=== PATIENT | male | born 1980 | race Hispanic/Latino ===

== ENCOUNTER 2017-11-06 03:54 | Emergency (ER) | payer SELFPAY ==
[2017-11-06] MEDS ORDERED: LIDOCAINE VISCOUS 2% SOLN 15 ML UDC ONE (04:06)
--- NOTE | 2017-11-06 04:23 | EDPHYS ---
Physician Documentation [facility] Name: José Miguel Bauman Age: 37 yrs Sex: Male : 1980 Arrival Date: 11/06/2017 Time: 03:58 Bed 5 Private MD: ED Physician Brandon Aguilar HPI: 11/06 04:12 This 37 yrs old Male presents to ER via Unassigned with complaints of Bug in Ear. ps1 04:12 The patient presents with a foreign body sensation, presumably from an insect. patient ps1 was awakened from insect in ear. Currently feels it moving. BIBEMS. Pain moderate with insect movement. . Historical: - Allergies: 04:27 No Known Allergies; aa1 - Home Meds: 04:27 None [Active]; aa1 - PMHx: 04:27 None; aa1 - PSHx: 04:27 None; aa1 - Immunization history:: Last tetanus immunization: < 10 years ago. - Social history:: Smoking status: Patient uses tobacco products, smokes one-half pack cigarettes per day. - Ebola Screening: : No symptoms or risks identified at this time. ROS: 04:12 Constitutional: Negative for fever, chills, and weight loss, Eyes: Negative for injury, ps1 pain, redness, and discharge, Cardiovascular: Negative for chest pain, palpitations, and edema, Respiratory: Negative for shortness of breath, cough, wheezing, and pleuritic chest pain, Abdomen/GI: Negative for abdominal pain, nausea, vomiting, diarrhea, and constipation. 04:12 ENT: Positive for foreign body sensation. Exam: 04:12 Constitutional: This is a well developed, well nourished patient who is awake, alert, ps1 and in no acute distress. Head/Face: Normocephalic, atraumatic. Chest/axilla: Normal chest wall appearance and motion. Nontender with no deformity. No lesions are appreciated. Cardiovascular: Regular rate and rhythm. No gallops, murmurs, or rubs. Normal PMI, no JVD. No pulse deficits. Respiratory: Lungs have equal breath sounds bilaterally, clear to auscultation and percussion. No rales, rhonchi or wheezes noted. No increased work of breathing, no retractions or nasal flaring. Abdomen/GI: Soft, non-tender, with normal bowel sounds. No distension or tympany. No guarding or rebound. No evidence of tenderness throughout. 04:12 ENT: External ear(s): are unremarkable, Ear canal(s): foreign body, an insect, bonilla, in the right external ear canal. Vital Signs: 03:58 BP 140 / 102; Pulse 75; Resp 16; Temp 97.8; Pulse Ox 98% on R/A; Weight 93.89 kg; aa1 Height 5 ft. 9 in. (175.26 cm); Pain 0/10; 03:58 Body Mass Index 30.57 (93.89 kg, 175.26 cm) aa1 Procedures: 04:12 Foreign Body Removal: an insect, from the right ear canal, by using alligator clamps, ps1 lidocaine lavage, The patient tolerated the removal well. MDM: 04:12 Data reviewed: vital signs, nurses notes, and as a result, I will discharge patient. ps1 04:22 Patient medically screened. ps1 Administered Medications: 04:05 Drug: Viscous Lidocaine Liquid (4 %) 1 application Route: Mucous Membrane; aa1 Disposition: 11/06/17 04:22 Discharged to Home. Impression: Foreign body in right ear. - Condition is Stable. - Discharge Instructions: Ear Foreign Body. - Medication Reconciliation Form, Thank You Letter, Antibiotic Education, Prescription Opioid Use form. - Follow up: Emergency Department; When: As needed; Reason: Worsening of condition. Follow up: Private Physician; When: As needed; Reason: Fever > 102 F. - Problem is new. - Symptoms are resolved. Signatures: Margaret Thompson RN RN aa1 Agustina Carrillo RN RN bb Brandon Aguilar MD MD ps1 Corrections: (The following items were deleted from the chart) 04:33 04:22 11/06/2017 04:22 Discharged to Home. Impression: Foreign body in right ear. aa1 Condition is Stable. Forms are Medication Reconciliation Form, Thank You Letter, Antibiotic Education, Prescription Opioid Use. Follow up: Emergency Department; When: As needed; Reason: Worsening of condition. Follow up: Private Physician; When: As needed; Reason: Fever > 102 F. Problem is new. Symptoms are resolved. ps1
--- NOTE | 2017-11-06 04:23 | ER ---
Nurse's Notes [facility] Name: José Miguel Bauman Age: 37 yrs Sex: Male : 1980 Arrival Date: 11/06/2017 Time: 03:58 Bed 5 Private MD: Diagnosis: Foreign body in right ear Presentation: 11/06 03:58 Presenting complaint: Patient states: he has a bug stuck in his R ear canal. Transition aa1 of care: patient was not received from another setting of care. Onset of symptoms was November 06, 2017. Risk Assessment: Do you want to hurt yourself or someone else? Patient reports no desire to harm self or others. Initial Sepsis Screen: Does the patient meet any 2 criteria? No. Patient's initial sepsis screen is negative. Does the patient have a suspected source of infection? No. Patient's initial sepsis screen is negative. Care prior to arrival: None. 03:58 Method Of Arrival: EMS: [facility] aa1 03:58 Acuity: KALYANI 4 aa1 Historical: - Allergies: 04:27 No Known Allergies; aa1 - Home Meds: 04:27 None [Active]; aa1 - PMHx: 04:27 None; aa1 - PSHx: 04:27 None; aa1 - Immunization history:: Last tetanus immunization: < 10 years ago. - Social history:: Smoking status: Patient uses tobacco products, smokes one-half pack cigarettes per day. - Ebola Screening: : No symptoms or risks identified at this time. Screenin:00 Abuse screen: Denies threats or abuse. Denies injuries from another. Nutritional aa1 screening: No deficits noted. Tuberculosis screening: No symptoms or risk factors identified. Fall Risk None identified. Assessment: 04:00 General: Appears in no apparent distress. comfortable, Behavior is calm, cooperative, aa1 appropriate for age. Pain: Denies pain. Neuro: Level of Consciousness is awake, alert, obeys commands, Oriented to person, place, time, situation, Gait is steady. Respiratory: Airway is patent Respiratory effort is even, unlabored, Respiratory pattern is regular, symmetrical. GI: No signs and/or symptoms were reported involving the gastrointestinal system. : No signs and/or symptoms were reported regarding the genitourinary system. EENT: Ear canal w/ foreign body noted from right ear. Derm: Skin is intact, is healthy with good turgor, Skin is pink, warm \T\ dry. Musculoskeletal: Circulation, motion, and sensation intact. Capillary refill < 3 seconds. Vital Signs: 03:58 BP 140 / 102; Pulse 75; Resp 16; Temp 97.8; Pulse Ox 98% on R/A; Weight 93.89 kg; aa1 Height 5 ft. 9 in. (175.26 cm); Pain 0/10; 03:58 Body Mass Index 30.57 (93.89 kg, 175.26 cm) aa1 ED Course: 03:58 Patient arrived in ED. bb 03:58 Arm band placed on right wrist. Patient placed in an exam room, on a stretcher. aa1 04:00 Patient has correct armband on for positive identification. Bed in low position. Call aa1 light in reach. Pulse ox on. NIBP on. 04:10 Assist provider with foreign body removal of an insect from right ear canal. using aa1 alligator clamps, Set up for procedure. Performed by Brandon Aguilar MD Patient tolerated well. Patient did not have IV access during this emergency room visit. 04:12 Brandon Aguilar MD is Attending Physician. ps1 04:12 Margaret Thompson RN is Primary Nurse. aa1 04:18 Triage completed. aa1 Administered Medications: 04:05 Drug: Viscous Lidocaine Liquid (4 %) 1 application Route: Mucous Membrane; aa1 Outcome: 04:22 Discharge ordered by . ps1 04:32 Discharged to home ambulatory, with family. aa1 04:32 Condition: good 04:32 Discharge instructions given to patient, Instructed on discharge instructions, follow up and referral plans. Demonstrated understanding of instructions, follow-up care. 04:33 Patient left the ED. aa1 Signatures: Margaret Thompson, RN RN aa1 Agustina Carrillo RN RN bb Brandon Aguilar MD MD ps1
== END 2017-11-06 04:33 | disposition home or self-care (01) ==
LOC: ER 03:54
PROC: 09C3XZZ Extirpation of Matter from Right External Auditory Canal, External Approach (ICD-10-PCS; principal; 2017-11-06)
DX: T16.1XXA Foreign body in right ear, initial encounter (principal); F17.210 Nicotine dependence, cigarettes, uncomplicated
CPT/HCPCS: 99284

== ENCOUNTER 2018-03-10 04:06 | Emergency (ER) | payer SELFPAY ==
[2018-03-10] MEDS ORDERED: HYDROMORPHONE HCL 1 MG/ML INJ ONE ×2 (04:56→07:28)
[2018-03-10] MEDS ORDERED: ONDANSETRON 4 MG/2 ML VIAL ONE (04:56)
[2018-03-10 05:14] LABS: Absolute Lymphocytes (CBC) 2.9 K/uL (0.7-4.9); Absolute Monocytes 0.8 K/uL (0.1-1.3); Basophils % 0.5 % (0-1.3); Eosinophils % 0.5 % (0-4.4); Hematocrit 47.4 % (39.6-49.0); Lymphocytes % 26.8 % (15.3-44.8); MCH 29.3 pg (27.0-35.0); MCV 84.6 fL (80-100); MPV 7.6 fL (7.6-11.3); Monocytes % 7.5 % (3.3-12.3); RBC Red Blood Cell Count 5.61 M/uL (4.33-5.43)
[2018-03-10] MEDS ORDERED: PANTOPRAZOLE 40 MG INJ ONE (05:17)
[2018-03-10] MEDS ORDERED: METRONIDAZOLE 500mg IVPB 500 MG/100 ML BAG IV ONE (05:18)
[2018-03-10] MEDS ORDERED: Levofloxacin 750mg IV 750 MG/150 ML BAG IV ONE (05:18)
[2018-03-10 05:31] LABS: Albumin 4.4 g/dL (3.4-5.0); Bilirubin Direct 0.2 mg/dL (0-0.2); Bilirubin Total 0.7 mg/dL (0.2-1.0); Potassium 3.7 mmol/L (3.5-5.1); Protein, Total 8.9 g/dL (6.4-8.2)
[2018-03-10] MEDS ORDERED: NA CHLORIDE 0.9% 2,000 ML ONE (06:13)
--- OUTSIDE RECORDS SUMMARY | 2018-03-10 06:52 | XMS REPORT ---
:1980 [facility] Address [address] [place] [address] [address]. [address] [place] [address] Care Team Providers Name Role Phone Unavailable Unavailable Unavailable Problems This patient has no known problems. Allergies, Adverse Reactions, Alerts This patient has no known allergies or adverse reactions. Medications This patient has no known medications. Encounters Start End Encounter Admission Attending Care Care Encounter Date/Time Date/Time Type Type Clinicians Facility Department ID 2016-09-24 2016-11-24 Outpatient [facility] [id number] 00:00:00 00:00:00
--- NOTE | 2018-03-10 07:34 | ER ---
Nurse's Notes [facility] Name: José Miguel Bauman Age: 37 yrs Sex: Male : 1980 Arrival Date: 03/10/2018 Time: 04:12 Bed 16 Private MD: Diagnosis: Abdominal tenderness;Strain of muscle, fascia and tendon of abdomen;Strain of muscle, fascia and tendon of abdomen, lower back and pelvis;Diverticulosis of intestine, part unspecified, without perforation or abscess without bleeding-scattered sigmoid, mild, no diverticulitis Presentation: 03/10 04:13 Presenting complaint: Patient states: toned out for report of pt having severe groin bb pain. Transition of care: patient was not received from another setting of care. Onset of symptoms was March 09, 2018. Risk Assessment: Do you want to hurt yourself or someone else? Patient reports no desire to harm self or others. Initial Sepsis Screen: Does the patient meet any 2 criteria? No. Patient's initial sepsis screen is negative. Does the patient have a suspected source of infection? No. Patient's initial sepsis screen is negative. Care prior to arrival: None. 04:13 Method Of Arrival: EMS: [facility] bb 04:13 Acuity: KALYANI 3 bb Historical: - Allergies: 08:48 Levaquin; bp - Home Meds: 04:15 None [Active]; bb - PMHx: 04:15 None; bb - PSHx: 04:15 None; bb - Immunization history:: Adult Immunizations unknown. - Social history:: Smoking status: Patient uses tobacco products, denies chronic smoking, but will smoke occasionally, Patient uses alcohol, occasionally. Patient/guardian denies using street drugs. - Ebola Screening: : No symptoms or risks identified at this time. - Family history:: not pertinent. Screenin:07 Abuse screen: Denies threats or abuse. Denies injuries from another. Nutritional bp screening: No deficits noted. Tuberculosis screening: No symptoms or risk factors identified. Fall Risk None identified. Assessment: 04:15 General: Appears in no apparent distress. comfortable, Behavior is calm, cooperative, cc3 appropriate for age. Pain: Complains of pain in left lower quadrant and posterior aspect of left lateral abdomen and right lower quadrant and right upper quadrant and posterior aspect of right lateral abdomen and anterior aspect of right lateral abdomen. Neuro: Level of Consciousness is awake, alert, obeys commands, Oriented to person, place, time, situation, Appropriate for age. Cardiovascular: Patient's skin is warm and dry. Respiratory: Airway is patent Respiratory effort is even, unlabored, Respiratory pattern is regular, symmetrical. GI: Abdomen is round obese. : No signs and/or symptoms were reported regarding the genitourinary system. EENT: No signs and/or symptoms were reported regarding the EENT system. Derm: No signs and/or symptoms reported regarding the dermatologic system. Musculoskeletal: Circulation, motion, and sensation intact. Range of motion: intact in all extremities. 05:18 Reassessment: Oral contrast is finished, CT scan department informed. cc3 06:45 Reassessment: Patient appears in no apparent distress at this time. Patient and/or cc3 family updated on plan of care and expected duration. Pain level reassessed. Patient is alert, oriented x 3, equal unlabored respirations, skin warm/dry/pink. Patient came back from CT scan department. 07:00 General: Appears in no apparent distress. comfortable, Behavior is calm, cooperative, bp appropriate for age, RECD REPORT FROM LUCRETIA PATRICIO. 37YO HM P/W GROIN PAIN. ALL CURRENT ORDERS COMPLETE. Pain: Complains of pain in left lower quadrant and right lower quadrant. Neuro: Level of Consciousness is awake, alert, obeys commands, Oriented to person, place, time, situation, Appropriate for age. Cardiovascular: No deficits noted. Respiratory: Airway is patent Respiratory effort is even, unlabored, Respiratory pattern is regular, symmetrical. GI: No signs and/or symptoms were reported involving the gastrointestinal system. : No signs and/or symptoms were reported regarding the genitourinary system. EENT: No deficits noted. Derm: No deficits noted. Musculoskeletal: Circulation, motion, and sensation intact. Range of motion: intact in all extremities. 07:40 Reassessment: D/C ON HOLD FOR IV ABX AND IVF COMPLETION. bp 08:28 Reassessment: PT ITCHING AFTER LEVAQUIN, PROVIDER INFORMED. bp 08:30 Reassessment: D/C ON HOLD FOR TREATMENT OF DRUG REACTION. bp 09:11 Reassessment: PT D/C HOME AMBULATORY WITH FAMILY, NO FURTHER S/S OF ADVERSE DRUG bp REACTION, DX WITH ABDOMINAL TENDERNESS AND DIVERTICULOSIS. Vital Signs: 04:15 BP 144 / 102; Pulse 109; Resp 18 S; Temp 98.3(O); Pulse Ox 96% on R/A; Weight 94.35 kg bb (R); Height 5 ft. 8 in. (172.72 cm) (R); Pain 10/10; 05:45 BP 119 / 75; Pulse 89; Resp 20 S; Pulse Ox 98% on R/A; cc3 06:30 BP 120 / 85; Pulse 86; Resp 19 S; Pulse Ox 98% on R/A; cc3 07:15 BP 123 / 74; Pulse 81; Resp 16; Pulse Ox 100% ; bp 08:39 BP 113 / 69; Pulse 82; Resp 17; Pulse Ox 97% on R/A; mh5 08:46 BP 123 / 90; Pulse 86; Resp 18; Pulse Ox 100% ; bp 04:15 Body Mass Index 31.63 (94.35 kg, 172.72 cm) bb ED Course: 04:12 Patient arrived in ED. bb 04:13 Steven Sterling MD is Attending Physician. simon 04:14 Triage completed. bb 04:15 Arm band placed on Patient placed in an exam room, on a stretcher, on pulse oximetry. bb 04:19 Lucretia Oakes is Primary Nurse. cc3 04:39 Inserted saline lock: 20 gauge in left antecubital area, using aseptic technique. Blood ea collected. 06:43 CT Abd/Pelvis - W/Contrast In Process Unspecified. EDMS 07:00 Report given to SINTIA Horan. cc3 07:03 Primary Nurse role handed off by Lucretia Oakes bp 07:03 Aung Plummer, RN is Primary Nurse. bp 07:07 Patient has correct armband on for positive identification. Bed in low position. Call bp light in reach. Side rails up X2. Adult w/ patient. 07:31 Brendan Son MD is Referral Physician. simon 09:13 No provider procedures requiring assistance completed. IV discontinued, intact, bp bleeding controlled, No redness/swelling at site. Pressure dressing applied. Administered Medications: 04:50 Drug: Dilaudid 1 mg Route: IVP; Site: left antecubital; cc3 05:30 Follow up: Response: No adverse reaction; Pain is decreased cc3 04:54 CANCELLED (Duplicate Order): Bactrim (160 mg-800 mg (DS) 1 tablet PO once simon 04:55 Drug: Zofran 4 mg Route: IVP; Site: left antecubital; cc3 05:30 Follow up: Response: No adverse reaction cc3 05:10 Drug: ProTONIX 40 mg Route: IVP; Site: left antecubital; cc3 05:30 Follow up: Response: No adverse reaction cc3 05:20 Drug: Flagyl 500 mg Volume: 100 ml; Route: IVPB; Rate: 200 ml/hr; Infused Over: 30 cc3 mins; Site: left antecubital; 05:50 Follow up: Response: No adverse reaction; IV Status: Completed infusion; IV Intake: cc3 100ml 06:00 Drug: levofloxacin 750 mg Volume: 150 ml; Route: IVPB; Infused Over: 90 mins; Site: cc3 left antecubital; 08:30 Follow up: IV Status: Completed infusion; IV Intake: 150ml bp 06:07 Drug: NS 0.9% 1000 ml Route: IV; Rate: 1 bolus; Site: left antecubital; ea 08:30 Follow up: IV Status: Completed infusion; IV Intake: 1000ml bp 06:08 Drug: NS 0.9% 1000 ml Route: IV; Rate: 1 bolus; Site: left antecubital; ea 08:00 Follow up: IV Status: Completed infusion; IV Intake: 1000ml bp 07:24 Drug: Dilaudid 1 mg Route: IVP; Site: left antecubital; bp 07:26 Follow up: Response: Pain is decreased bp 08:29 Drug: diphenhydrAMINE 25 mg Route: IVP; Site: left antecubital; bp 08:45 Follow up: Response: No change in condition bp 08:43 Drug: Pepcid 20 mg Route: PO; bp 09:10 Follow up: Response: Marked relief of symptoms bp 08:43 Drug: ZyrTEC - Cetirizine 10 mg Route: PO; bp 09:10 Follow up: Response: Marked relief of symptoms bp 08:44 Drug: predniSONE 60 mg Route: PO; bp 09:10 Follow up: Response: Marked relief of symptoms bp Intake: 05:50 IV: 100ml; Total: 100ml. cc3 08:00 IV: 1000ml; Total: 1100ml. bp 08:30 IV: 1000ml; Total: 2100ml. bp 08:30 IV: 150ml; Total: 2250ml. bp Outcome: 07:34 Discharge ordered by . simon 09:14 Discharged to home ambulatory, with family. bp 09:14 Condition: stable 09:14 Discharge instructions given to patient, family, Instructed on discharge instructions, follow up and referral plans. medication usage, Demonstrated understanding of instructions, follow-up care, medications, Prescriptions given X 4. 09:16 Patient left the ED. bp Signatures: Dispatcher [employer] EDHI Steven Sterling MD MD cha Ballard, Brenda, RN RN Aydee Wyman [facility] Joanna Peñaloza RN RN ea Peltier, Brian, RN RN Lucretia Quispe 3 Corrections: (The following items were deleted from the chart) 08:48 04:15 Allergies: No Known Allergies; all bp
--- NOTE | 2018-03-10 07:35 | EDPHYS ---
Physician Documentation [facility] Name: José Miguel Bauman Age: 37 yrs Sex: Male : 1980 Arrival Date: 03/10/2018 Time: 04:12 Bed 16 Private MD: ED Physician Steven Sterling HPI: 03/10 04:45 This 37 yrs old Male presents to ER via EMS with complaints of Groin Pain. simon 04:45 The patient presents with abdominal pain in the lower abdomen, abdominal distention in simon the upper abdomen, in the lower abdomen. Onset: The symptoms/episode began/occurred yesterday. The patient presents to the emergency department with nausea, vomiting, abdominal pain, of the anterior aspect of right lateral abdomen, posterior aspect of right lateral abdomen, right upper quadrant and right lower quadrant. Onset: The symptoms/episode began/occurred 1 day(s) ago. Possible causes: unknown, flare up of bowel problem, sick contacts. The symptoms are aggravated by movement, pressure, The symptoms are alleviated by nothing. remaining still. The symptoms do not radiate. Associated signs and symptoms: The patient has no apparent associated signs or symptoms. Historical: - Allergies: 08:48 Levaquin; bp - Home Meds: 04:15 None [Active]; bb - PMHx: 04:15 None; bb - PSHx: 04:15 None; bb - Immunization history:: Adult Immunizations unknown. - Social history:: Smoking status: Patient uses tobacco products, denies chronic smoking, but will smoke occasionally, Patient uses alcohol, occasionally. Patient/guardian denies using street drugs. - Ebola Screening: : No symptoms or risks identified at this time. - Family history:: not pertinent. ROS: 04:45 Constitutional: Negative for fever, chills, and weight loss, Eyes: Negative for injury, simon pain, redness, and discharge, ENT: Negative for injury, pain, and discharge, Neck: Negative for injury, pain, and swelling, Cardiovascular: Negative for chest pain, palpitations, and edema, Respiratory: Negative for shortness of breath, cough, wheezing, and pleuritic chest pain, Back: Negative for injury and pain, : Negative for injury, bleeding, discharge, and swelling, MS/Extremity: Negative for injury and deformity, Skin: Negative for injury, rash, and discoloration, Neuro: Negative for headache, weakness, numbness, tingling, and seizure, Psych: Negative for depression, anxiety, suicide ideation, homicidal ideation, and hallucinations, Allergy/Immunology: Negative for hives, rash, and allergies, Endocrine: Negative for neck swelling, polydipsia, polyuria, polyphagia, and marked weight changes, Hematologic/Lymphatic: Negative for swollen nodes, abnormal bleeding, and unusual bruising. 04:45 Abdomen/GI: Positive for abdominal pain, nausea and vomiting, constipation, abdominal cramps, flatulence, of the posterior aspect of left lateral abdomen, posterior aspect of right lateral abdomen, right lower quadrant and left lower quadrant. Exam: 04:45 Head/Face: Normocephalic, atraumatic. Eyes: Pupils equal round and reactive to light, simon extra-ocular motions intact. Lids and lashes normal. Conjunctiva and sclera are non-icteric and not injected. Cornea within normal limits. Periorbital areas with no swelling, redness, or edema. ENT: Nares patent. No nasal discharge, no septal abnormalities noted. Tympanic membranes are normal and external auditory canals are clear. Oropharynx with no redness, swelling, or masses, exudates, or evidence of obstruction, uvula midline. Mucous membranes moist. Neck: Trachea midline, no thyromegaly or masses palpated, and no cervical lymphadenopathy. Supple, full range of motion without nuchal rigidity, or vertebral point tenderness. No Meningismus. Chest/axilla: Normal chest wall appearance and motion. Nontender with no deformity. No lesions are appreciated. Cardiovascular: Regular rate and rhythm with a normal S1 and S2. No gallops, murmurs, or rubs. Normal PMI, no JVD. No pulse deficits. Respiratory: Lungs have equal breath sounds bilaterally, clear to auscultation and percussion. No rales, rhonchi or wheezes noted. No increased work of breathing, no retractions or nasal flaring. Back: No spinal tenderness. No costovertebral tenderness. Full range of motion. Male : Normal genitalia with no discharge or lesions. Skin: Warm, dry with normal turgor. Normal color with no rashes, no lesions, and no evidence of cellulitis. MS/ Extremity: Pulses equal, no cyanosis. Neurovascular intact. Full, normal range of motion. Neuro: Awake and alert, GCS 15, oriented to person, place, time, and situation. Cranial nerves II-XII grossly intact. Motor strength 5/5 in all extremities. Sensory grossly intact. Cerebellar exam normal. Normal gait. Psych: Awake, alert, with orientation to person, place and time. Behavior, mood, and affect are within normal limits. 04:45 Abdomen/GI: Inspection: distension, Bowel sounds: active, Palpation: moderate abdominal tenderness, severe abdominal tenderness, in all quadrants, Indicators: Liver: no appreciated palpable abnormalities, Hernia: not appreciated. 07:30 : CVA tenderness, is absent, Male external genitalia: normal, Circumcision noted. simon Bladder: is normal. 07:30 Skin: abscess, not appreciated, cellulitis, is not appreciated, induration, is not appreciated, injury, is not appreciated, lesion(s), are not present, no rash present. Vital Signs: 04:15 BP 144 / 102; Pulse 109; Resp 18 S; Temp 98.3(O); Pulse Ox 96% on R/A; Weight 94.35 kg bb (R); Height 5 ft. 8 in. (172.72 cm) (R); Pain 10/10; 05:45 BP 119 / 75; Pulse 89; Resp 20 S; Pulse Ox 98% on R/A; cc3 06:30 BP 120 / 85; Pulse 86; Resp 19 S; Pulse Ox 98% on R/A; cc3 07:15 BP 123 / 74; Pulse 81; Resp 16; Pulse Ox 100% ; bp 08:39 BP 113 / 69; Pulse 82; Resp 17; Pulse Ox 97% on R/A; mh5 08:46 BP 123 / 90; Pulse 86; Resp 18; Pulse Ox 100% ; bp 04:15 Body Mass Index 31.63 (94.35 kg, 172.72 cm) bb MDM: 04:13 Patient medically screened. [facility] 04:50 Data reviewed: vital signs, nurses notes, lab test result(s), EKG, radiologic studies, [facility] plain films. 03/10 04:29 Order name: Basic Metabolic Panel; Complete Time: 06:00 ea 03/10 04:29 Order name: CBC with Diff; Complete Time: 06:00 ea 03/10 04:29 Order name: Creatinine for Radiology; Complete Time: 06:00 ea 03/10 04:29 Order name: Hepatic Function; Complete Time: 06:00 03/10 04:29 Order name: Lipase; Complete Time: 06:00 03/10 04:45 Order name: Urine Culture [facility] 03/10 04:45 Order name: CT Abd/Pelvis - W/Contrast [facility] 03/10 07:28 Order name: Urine Dipstick--Ancillary (enter results) 03/10 04:29 Order name: IV Saline Lock; Complete Time: 05:01 03/10 04:29 Order name: Labs collected and sent; Complete Time: 05:01 03/10 04:45 Order name: Urine Dipstick-Ancillary (obtain specimen); Complete Time: 07:28 [facility] Administered Medications: 04:50 Drug: Dilaudid 1 mg Route: IVP; Site: left antecubital; cc3 05:30 Follow up: Response: No adverse reaction; Pain is decreased cc3 04:54 CANCELLED (Duplicate Order): Bactrim (160 mg-800 mg (DS) 1 tablet PO once [facility] 04:55 Drug: Zofran 4 mg Route: IVP; Site: left antecubital; cc3 05:30 Follow up: Response: No adverse reaction cc3 05:10 Drug: ProTONIX 40 mg Route: IVP; Site: left antecubital; cc3 05:30 Follow up: Response: No adverse reaction cc3 05:20 Drug: Flagyl 500 mg Volume: 100 ml; Route: IVPB; Rate: 200 ml/hr; Infused Over: 30 cc3 mins; Site: left antecubital; 05:50 Follow up: Response: No adverse reaction; IV Status: Completed infusion; IV Intake: cc3 100ml 06:00 Drug: levofloxacin 750 mg Volume: 150 ml; Route: IVPB; Infused Over: 90 mins; Site: cc3 left antecubital; 08:30 Follow up: IV Status: Completed infusion; IV Intake: 150ml bp 06:07 Drug: NS 0.9% 1000 ml Route: IV; Rate: 1 bolus; Site: left antecubital; ea 08:30 Follow up: IV Status: Completed infusion; IV Intake: 1000ml bp 06:08 Drug: NS 0.9% 1000 ml Route: IV; Rate: 1 bolus; Site: left antecubital; ea 08:00 Follow up: IV Status: Completed infusion; IV Intake: 1000ml bp 07:24 Drug: Dilaudid 1 mg Route: IVP; Site: left antecubital; bp 07:26 Follow up: Response: Pain is decreased bp 08:29 Drug: diphenhydrAMINE 25 mg Route: IVP; Site: left antecubital; bp 08:45 Follow up: Response: No change in condition bp 08:43 Drug: Pepcid 20 mg Route: PO; bp 09:10 Follow up: Response: Marked relief of symptoms bp 08:43 Drug: ZyrTEC - Cetirizine 10 mg Route: PO; bp 09:10 Follow up: Response: Marked relief of symptoms bp 08:44 Drug: predniSONE 60 mg Route: PO; bp 09:10 Follow up: Response: Marked relief of symptoms bp Disposition: 03/10/18 07:34 Discharged to Home. Impression: Abdominal tenderness, Strain of muscle, fascia and tendon of abdomen, Strain of muscle, fascia and tendon of abdomen, lower back and pelvis, Diverticulosis of intestine, part unspecified, without perforation or abscess without bleeding - scattered sigmoid, mild, no diverticulitis. - Condition is Stable. - Discharge Instructions: Abdominal Pain, Adult, Diverticulosis, Abdominal Pain, Adult, [id number]. - Prescriptions for Bentyl 20 mg Oral Tablet - take 1 tablet by ORAL route every 6 hours As needed; 20 tablet. Tylenol- Codeine #3 300-30 mg Oral Tablet - take 2 tablets by ORAL route every 6 hours As needed; 20 tablet. Zofran 4 mg Oral Tablet - take 1 tablet by ORAL route every 12 hours As needed; 20 tablet. Pepcid 20 mg Oral Tablet - take 1 tablet by ORAL route every 12 hours for 10 days; 20 tablet. - Work release form, Medication Reconciliation Form, Thank You Letter, Antibiotic Education, Prescription Opioid Use form. - Follow up: Private Physician; When: 2 - 3 days; Reason: Recheck today's complaints, Continuance of care, Re-evaluation by your physician. Follow up: Brendan Son MD; When: 2 - 3 days; Reason: Recheck today's complaints, Re-evaluation by your physician. - Problem is new. - Symptoms have improved. Signatures: Dispatcher [employer] EDSteven Mora MD MD cha Therrien, Shelly, ELECTRIC SWITCH REPAIRER-C ELECTRIC SWITCH REPAIRER-Csnw Agustina Carrillo, RN RN Joanna Chong, RN RN Aung Shields, RN RN Lucretia Quispe cc3 Corrections: (The following items were deleted from the chart) 04:54 04:54 Bactrim (160 mg-800 mg (DS) 1 tablet PO once ordered. [facility] 08:48 04:15 Allergies: No Known Allergies; all 09:16 07:34 03/10/2018 07:34 Discharged to Home. Impression: Abdominal tenderness; Strain of bp muscle, fascia and tendon of abdomen; Strain of muscle, fascia and tendon of abdomen, lower back and pelvis; Diverticulosis of intestine, part unspecified, without perforation or abscess without bleeding - scattered sigmoid, mild, no diverticulitis. Condition is Stable. Forms are Medication Reconciliation Form, Thank You Letter, Antibiotic Education, Prescription Opioid Use. Follow up: Private Physician; When: 2 - 3 days; Reason: Recheck today's complaints, Continuance of care, Re-evaluation by your physician. Follow up: Brendan Son; When: 2 - 3 days; Reason: Recheck today's complaints, Re-evaluation by your physician. Problem is new. Symptoms have improved. simon
[2018-03-10] MEDS ORDERED: DIPHENHYDRAMINE 50 MG/ML VIAL ONE (08:33)
--- NOTE | 2018-03-10 08:35 | RAD REPORT ---
EXAM DESCRIPTION: CT - Abdomen Pelvis W Contrast - 03/10/2018 8:13 am CLINICAL HISTORY: Abdominal pain. Right lower quadrant pain COMPARISON: None. TECHNIQUE: Computed axial tomography of the abdomen and pelvis was obtained. 100 cc Isovue-300 is ad ministered intravenously. Oral contrast was given. All CT scans are performed using dose optimization technique as appropriate and may include automated exposure control or mA/KV adjustment according to patient size. FINDINGS: Fatty liver. Liver is mildly enlarged Spleen, pancreas, adrenals and kidneys appear unremarkable. The appendix is normal caliber. There is no evidence of diverticulitis Small inguinal hernias contain fat. A tiny umbilical hernia IMPRESSION: No acute abnormality displayed
[2018-03-10 08:47] LABS: Urine Blood NEGATIVE (NEG); Urine Glucose NEGATIVE (NEG); Urine Protein TRACE (NEG); Urine Specific Gravity 1.015 (1.005-1.030); Urine pH 5.5 (5.0-7.0)
[2018-03-10] MEDS ORDERED: predniSONE 20 MG TAB ONE (08:48)
[2018-03-10] MEDS ORDERED: FAMOTIDINE 20 MG TAB ONE (08:48)
[2018-03-10] MEDS ORDERED: CETIRIZINE HCL 5 MG TABLET ONE (08:48)
== END 2018-03-10 09:16 | disposition home or self-care (01) ==
LOC: ER 04:06
DX: S39.011A Strain of muscle, fascia and tendon of abdomen, initial encounter (principal); S39.012A Strain of muscle, fascia and tendon of lower back, initial encounter; S39.013A Strain of muscle, fascia and tendon of pelvis, initial encounter; K57.30 Diverticulosis of large intestine without perforation or abscess without bleeding; Z72.0 Tobacco use; Z88.1 Allergy status to other antibiotic agents
CPT/HCPCS: 36415; 74177; 80048; 80076; 81003; 83690; 85025; 87086; 87088; 96365; 96366; 96367; 96375; 99284; C9113; J1170; J2405; J7030; J7512; Q9967

== ENCOUNTER 2018-03-28 18:46 | Emergency (ER) | payer SELFPAY ==
--- OUTSIDE RECORDS SUMMARY | 2018-03-28 18:48 | XMS REPORT ---
:1980 [facility] Address [address] [place] [address] [address] [place] [address] Care Team Providers Name Role Phone Unavailable Unavailable Unavailable Problems This patient has no known problems. Allergies, Adverse Reactions, Alerts This patient has no known allergies or adverse reactions. Medications This patient has no known medications. Encounters Start End Encounter Admission Attending Care Care Encounter Date/Time Date/Time Type Type Clinicians Facility Department ID 2016-09-24 2016-11-24 Outpatient [facility] [id number] 00:00:00 00:00:00
--- NOTE | 2018-03-28 19:44 | EDPHYS ---
Physician Documentation [facility] Name: José Miguel Bauman Age: 37 yrs Sex: Male : 1980 Arrival Date: 03/28/2018 Time: 18:49 Bed 14 Private MD: ED Physician Margy Rao HPI: 03/28 19:41 This 37 yrs old Male presents to ER via Ambulatory with complaints of Ingrown ma2 Toenail. 19:41 The patient presents with pain. The complaints affect the right foot. Onset: The ma2 symptoms/episode began/occurred gradually, 1 day(s) ago. Associated signs and symptoms: Pertinent positives: rash, Pertinent negatives: calf tenderness, fever, nausea, numbness, swelling, tingling, vomiting, warmth, weakness. Severity of symptoms: At their worst the symptoms were moderate, in the emergency department the symptoms are unchanged. The patient has not experienced similar symptoms in the past. Historical: - Allergies: 19:11 Levaquin; aj - Home Meds: 19:11 None [Active]; aj - PMHx: 19:11 None; aj - PSHx: 19:11 None; aj - Immunization history:: Last tetanus immunization: < 5 years ago. - Social history:: Smoking status: Patient uses tobacco products, smokes one-half pack cigarettes per day, Patient/guardian denies using alcohol, street drugs, The patient lives. - Ebola Screening: : Patient negative for fever greater than or equal to 101.5 degrees Fahrenheit, and additional compatible Ebola Virus Disease symptoms Patient denies exposure to infectious person Patient denies travel to an Ebola-affected area in the 21 days before illness onset No symptoms or risks identified at this time. - Family history:: not pertinent. ROS: 19:41 MS/extremity: Positive for erythema, pain, swelling, Negative for injury or acute ma2 deformity, abrasion, bite, contusion, decreased range of motion, deformity. 19:41 Constitutional: Negative for fever, chills, and weight loss, Cardiovascular: Negative for chest pain, palpitations, and edema, Respiratory: Negative for shortness of breath, cough, wheezing, and pleuritic chest pain, Abdomen/GI: Negative for abdominal pain, nausea, diarrhea, and constipation. 19:41 All other systems are negative. Exam: 19:41 Constitutional: This is a well developed, well nourished patient who is awake, alert, ma2 and in no acute distress. Neck: Trachea midline, no thyromegaly or masses palpated, and no cervical lymphadenopathy. Supple, full range of motion without nuchal rigidity, or vertebral point tenderness. No Meningismus. Chest/axilla: Normal chest wall appearance and motion. Nontender with no deformity. No lesions are appreciated. Cardiovascular: Regular rate and rhythm with a normal S1 and S2. No gallops, murmurs, or rubs. Normal PMI, no JVD. No pulse deficits. Respiratory: Lungs have equal breath sounds bilaterally, clear to auscultation and percussion. No rales, rhonchi or wheezes noted. No increased work of breathing, no retractions or nasal flaring. Abdomen/GI: Soft, non-tender, with normal bowel sounds. No distension or tympany. No guarding or rebound. No evidence of tenderness throughout. 19:41 Musculoskeletal/extremity: ROM: intact in all extremities, Circulation is intact in all extremities. Sensation intact. Joints: Nails: left great toe pain and redness lateral to nail, no ingroing nail, no puss or fluctuance . Vital Signs: 19:11 BP 114 / 75; Pulse 99; Resp 20; Temp 99.1; Pulse Ox 99% on R/A; Weight 96.62 kg; Height aj 5 ft. 8 in. (172.72 cm); 19:11 Body Mass Index 32.39 (96.62 kg, 172.72 cm) MDM: 19:14 Patient medically screened. [facility] 19:41 Differential diagnosis: sprain, arthritis, cellulitis. Data reviewed: vital signs, mt2 nurses notes. Counseling: I had a detailed discussion with the patient and/or guardian regarding: the historical points, exam findings, and any diagnostic results supporting the discharge/admit diagnosis, the presence of at least one elevated blood pressure reading (>120/80) during this emergency department visit, the need for outpatient follow up. Administered Medications: No medications were administered Disposition: 03/28/18 19:44 Discharged to Home. Impression: Cellulitis of left toe. - Condition is Stable. - Discharge Instructions: Athlete's Foot, Cellulitis, Adult, Paronychia, [id number]. - Prescriptions for Clindamycin HCl 300 mg Oral Capsule - take 1 capsule by ORAL route every 6 hours for 10 days; 40 capsule. Tylenol- Codeine #3 300-30 mg Oral Tablet - take 2 tablet by ORAL route every 6 hours As needed; 30 tablet. Nystatin- Triamcinolone 100,000-0.1 unit/g-% Topical Cream - apply 1 application by TOPICAL route 2 times per day; 1 tube. Bactrim DS 800- 160 mg Oral Tablet - take 1 tablet by ORAL route every 12 hours for 10 days; 20 tablet. - Work release form, Medication Reconciliation Form, Thank You Letter, Antibiotic Education, Prescription Opioid Use form. - Follow up: Private Physician; When: Tomorrow; Reason: Continuance of care. Signatures: Alyse Powell RN RN aj Bryson, James, RN RN jb4 Margy Rao MD MD ma2 Corrections: (The following items were deleted from the chart) 20:11 19:44 03/28/2018 19:44 Discharged to Home. Impression: Cellulitis of left toe. jb4 Condition is Stable. Forms are Medication Reconciliation Form, Thank You Letter, Antibiotic Education, Prescription Opioid Use. Follow up: Private Physician; When: Tomorrow; Reason: Continuance of care. ma2
--- NOTE | 2018-03-28 19:44 | ER ---
Nurse's Notes [facility] Name: José Miguel Bauman Age: 37 yrs Sex: Male : 1980 Arrival Date: 03/28/2018 Time: 18:49 Bed 14 Private MD: Diagnosis: Cellulitis of left toe Presentation: 03/28 19:10 Presenting complaint: Patient states: Ingrown toenail to left outer nail. Transition of aj care: patient was not received from another setting of care. Onset of symptoms was March 08, 2018. Risk Assessment: Do you want to hurt yourself or someone else? Patient reports no desire to harm self or others. Initial Sepsis Screen: Does the patient meet any 2 criteria? No. Patient's initial sepsis screen is negative. Does the patient have a suspected source of infection? No. Patient's initial sepsis screen is negative. Care prior to arrival: None. 19:10 Method Of Arrival: Ambulatory 19:10 Acuity: KALYANI 5 aj Triage Assessment: 19:11 General: Appears in no apparent distress. comfortable, Behavior is calm, cooperative, aj appropriate for age. Pain: Complains of pain in Left first toenail. Neuro: Level of Consciousness is awake, alert, obeys commands, Oriented to person, place, time, situation, Appropriate for age. Respiratory: Airway is patent Respiratory effort is even, unlabored, Respiratory pattern is regular, symmetrical. Derm: Skin is intact, is healthy with good turgor, Skin is pink, warm \T\ dry. normal. Historical: - Allergies: 19:11 Levaquin; aj - Home Meds: 19:11 None [Active]; aj - PMHx: 19:11 None; aj - PSHx: 19:11 None; aj - Immunization history:: Last tetanus immunization: < 5 years ago. - Social history:: Smoking status: Patient uses tobacco products, smokes one-half pack cigarettes per day, Patient/guardian denies using alcohol, street drugs, The patient lives. - Ebola Screening: : Patient negative for fever greater than or equal to 101.5 degrees Fahrenheit, and additional compatible Ebola Virus Disease symptoms Patient denies exposure to infectious person Patient denies travel to an Ebola-affected area in the 21 days before illness onset No symptoms or risks identified at this time. - Family history:: not pertinent. Screenin:28 Abuse screen: Denies threats or abuse. Nutritional screening: No deficits noted. jb4 Tuberculosis screening: No symptoms or risk factors identified. Fall Risk None identified. Assessment: 19:28 General: Appears in no apparent distress. uncomfortable, Behavior is calm, cooperative, jb4 appropriate for age. Pain: Complains of pain in Left first toenail Pain does not radiate. Pain currently is 4 out of 10 on a pain scale. Quality of pain is described as stabbing. Neuro: Level of Consciousness is awake, alert, obeys commands, Oriented to person, place, time, situation. Cardiovascular: Patient's skin is warm and dry. Respiratory: Airway is patent Respiratory effort is even, unlabored, Respiratory pattern is regular, symmetrical. GI: No signs and/or symptoms were reported involving the gastrointestinal system. : No signs and/or symptoms were reported regarding the genitourinary system. EENT: No signs and/or symptoms were reported regarding the EENT system. Derm: Skin is intact, Skin is pink, warm \T\ dry. Musculoskeletal: Circulation, motion, and sensation intact. 19:50 Reassessment: Patient appears in no apparent distress at this time. Patient and/or jb4 family updated on plan of care and expected duration. Pain level reassessed. Patient is alert, oriented x 3, equal unlabored respirations, skin warm/dry/pink. Discussed D/c, F/u with pt,denies questions or concerns. Vital Signs: 19:11 BP 114 / 75; Pulse 99; Resp 20; Temp 99.1; Pulse Ox 99% on R/A; Weight 96.62 kg; Height aj 5 ft. 8 in. (172.72 cm); 19:11 Body Mass Index 32.39 (96.62 kg, 172.72 cm) ED Course: 18:49 Patient arrived in ED. rg4 19:11 Triage completed. aj 19:11 Arm band placed on left wrist. Arm band placed on Patient placed in an exam room. aj 19:14 Margy Rao MD is Attending Physician. ma2 19:28 Fadi Ponce, SINTIA is Primary Nurse. jb4 19:28 Patient has correct armband on for positive identification. Bed in low position. Call jb4 light in reach. Side rails up X 1. Pulse ox on. NIBP on. 20:10 No provider procedures requiring assistance completed. Patient did not have IV access jb4 during this emergency room visit. Administered Medications: No medications were administered Outcome: :44 Discharge ordered by . colin2 19:50 Discharged to home ambulatory, with family. jb4 19:50 Condition: stable 19:50 Discharge instructions given to patient, family, Instructed on discharge instructions, follow up and referral plans. medication usage, Demonstrated understanding of instructions, follow-up care, medications, Prescriptions given X 4. 20:11 Patient left the ED. jb4 Signatures: Alyse Powell, RN Jennifer Olivo rg4 Fadi Ponce RN RN jb4 Margy Rao MD MD ma2
== END 2018-03-28 20:11 | disposition home or self-care (01) ==
LOC: ER 18:46
DX: L03.032 Cellulitis of left toe (principal); F17.210 Nicotine dependence, cigarettes, uncomplicated; Z88.1 Allergy status to other antibiotic agents
CPT/HCPCS: 99283